=== PATIENT | female | born 1960 | race Caucasian/White ===

== ENCOUNTER 2016-05-18 03:59 | Emergency (ER) | payer BC ==
--- NOTE | 2016-05-18 06:56 | ED NURSING NOTES ---
Clinical Report - Nurses [facility] [address] [place] [address] 05/18/2016 4:00 Patient: JORDANA PINEDO TRIAGE Triage time 04:06. Acuity: LEVEL 3. Chief Complaint: FEVER, HEADACHE, NAUSEA and VOMITING. 04:14. Alert. SEPSIS SCREEN: Sepsis Screen. Negative (no infection suspected/documented). TAMMIE COMA SCORE: Tammie Coma Scale: 15- eyes open spontaneously (4); best verbal response- oriented x 4 (5); best motor response- obeys commands (6). --04:14 Jonathan Kincaid R.N. 04:06 05/18/16. BP: 171/82. HR: 65. RR: 18. O2 saturation: 98%. Temp: 100.4 F (oral). Pain level now: 01/16. --04:14 Jonathan Kincaid R.N. Weight: 81.6 kg stated. Height/Length: 64 inches Per Patient. BMI: 30.9. --04:14 Jonathan Kincaid R.N. Medications Sertraline HCl Oral 100 mg, daily. --04:10 Jonathan Kincaid R.N. Metoprolol Tartrate Oral 50 mg, 2 x daily. --04:11 Jonathan Kincaid R.N. Ibuprofen Oral 800 mg, 3x a day as needed. --04:11 Jonathan Kincaid R.N. Levothyroxine Sodium Oral 88 mcg, daily. --04:11 Jonathan Kincaid R.N. Atorvastatin Calcium Oral 80 mg, daily. --04:12 Jonathan Kincaid R.N. Medication/allergy information source: the patient. --04:14 Jonathan Kincaid R.N. Allergies No Known Drug Allergy. --04:10 Jonathan Kincaid R.N. History Arrived by private vehicle. Historian: patient. Accompanied by family. Primary physician (Marline Hughes). Onset. (2 days ago). 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 PAST MEDICAL HX: Immunizations: up-to-date. The patient is post-menopausal. SOCIAL HX: Never smoker. No alcohol use or drug use. No infectious disease exposure. ABUSE ASSESSMENT: No report of abuse. FALL RISK ASSESSMENT: Fall risk assessment completed. No fall risk identified. NUTRITIONAL RISK ASSESSMENT: The nutritional risk assessment revealed no deficiencies. FUNCTIONAL ASSESSMENT: Functional assessment: no impairments noted. LEARNING NEEDS ASSESSMENT: The learning needs assessment revealed no barriers. SKIN INTEGRITY ASSESSMENT: Skin integrity risk assessment completed. No skin integrity risk identified. --04:14 Jonathan Kincaid R.N. PROBLEMS: Arthritis. Hypothyroidism. Hypertension. Hypercholesterolemia. Depression. --04:13 Jonathan Kincaid R.N. ADDITIONAL SURGERIES: . Tubal Ligation. --04:13 Jonathan Kincaid R.N. Interventions ID band on patient. To treatment room. --04:14 Jonathan Kincaid R.N. PHYSICAL ASSESSMENT 04:14. Ambulatory to room. Patient gowned. GENERAL / NEURO / PSYCH: Alert. Oriented X 4. HEENT: No facial asymmetry noted. Mucous membranes are pink. RESPIRATORY: Respirations not labored. SKIN: Skin intact. Skin is warm and dry. Normal skin turgor. --04:14 Jonathan Kincaid R.N. NURSING PROGRESS NOTES 04:14. Two patient identifiers checked. Call light placed in reach. Bed placed in lowest position. Brakes of bed on. Patient ready for evaluation- chart flagged. --04:14 Jonathan Kincaid R.N. 04:27 05/18/2016 Site #1 started via IV in the right forearm with an 20g angiocath, with aseptic technique and good blood return; one attempt. Blood drawn: rainbow set. Labeled in the presence of the patient and sent to the lab. --04:33 Jonathan Kincaid R.N. 04:28 05/18/2016 Started bag #1 1000 mL IV Fluids IV NS (Saline); at 1000 mL/hr over 1 hour(s) via site #1 --04:34 Jonathan Kincaid R.N. 04:28. Patient ID band checked for patient name and birthdate: patient confirmed. Flu swab obtained by RN via nasal pharyngeal swab. Labeled in the presence of the patient and sent to lab. --04:34 Jonathan Kincaid R.N. 04:30 05/18/2016 Zofran (Ondansetron HCl) IVP 4 mg given over 2 minute(s) via site #1. Allergies verified and confirmed 5 rights. IV patency established. IV site checked: no pain, redness, or swelling. IV flushed thoroughly pre- and post-medication administration. --04:35 Jonathan Kincaid R.N. 05:18 Patient reports unable to provide urine sample now. The patient is calm and resting quietly. RESPIRATORY: No respiratory distress. SKIN: Skin is warm and dry. Skin color within normal limits. --05:19 Jonathan Kincaid R.N. 05:49 05/18/2016 IV Fluids IV NS Bag Change: bag #1 infused. Total amount infused: 1000. STARTED bag #2 at 500 mL/hr. --05:49 Jonathan Kincaid R.N. 05:48. Patient ID band checked for patient name and birthdate: patient confirmed. Clean catch urine collected with return of yellow-colored clear urine; sample sent to lab for urinalysis. Specimen labeled in the presence of the patient. --05:50 Jonathan Kincaid R.N. The patient is calm and resting quietly. RESPIRATORY: No respiratory distress. SKIN: Skin is warm and dry. Skin color within normal limits. --06:37 Jonathan Kincaid R.N. 06:36 05/18/16. BP: 165/69. HR: 70. RR: 16. O2 saturation: 92% on room air. --06:37 Jonathan Kincaid R.N. 07:06. The patient is calm and resting quietly. RESPIRATORY: No respiratory distress. SKIN: Skin is warm and dry. Skin color within normal limits. --07:09 Jonathan Kincaid R.N. DISPOSITION / DISCHARGE 07:02 05/18/2016 IV Fluids IV NS Discontinued: bag #2 STOPPED upon discharge. Total amount infused: 550 mL. IV patency established. IV site checked: no pain, redness, or swelling. IV flushed thoroughly. --07:08 Jonathan Kincaid R.N. 07:03 05/18/2016 Site #1 removed upon discharge. Catheter intact. Bandage applied. --07:08 Jonathan Kincaid R.N. Departure time: 07:05. Condition at departure: stable. No learning barriers present. Discharge instructions provided and reviewed with the patient. Reviewed medication(s) side effects, precautions, dosing and course information. Prescription(s) given to the patient. Patient verbalized understanding. Written instructions provided in Djiboutian. The patient was discharged home and accompanied by housekeeper head. She left the Emergency Department ambulatory and via private vehicle. Bandsaw Operator driving. FALL RISK ASSESSMENT: Fall risk assessment completed. No fall risk identified. --07:08 Jonathan Kincaid R.N. 06:56 05/18/16. BP: 161/70. HR: 67. RR: 16. O2 saturation: 96%. Pain level now: 08/16. --07:08 Jonathan Kincaid R.N. Locked/Released at 05/18/2016 7:14 by Jonathan Kincaid R.N.
--- NOTE | 2016-05-18 06:56 | ED ORDER SUMMARY ---
..... Patient: JORDANA PINEDO OrderSheet [facility] VisitID: [id number] [address] [place] [address] 56y, F Registration Date/Time: 05/18/2016 ORDER SHEET Weight: 81.6 kg (stated) Allergies: No Known Drug Allergy GENERAL ORDERS: Rapid Influenza Screen (Nasal Pharyngeal) (swab) Urgent (04:05/18/2016 JQuivey R.N. per protocol) (Ack 4:58 LMuller) (4:58 LMuller) CBC w Diff Urgent (04:43 05/18/2016 JQuivey R.N. per protocol) (Ack 4:58 LMuller) (4:58 LMuller) CMP Urgent (04:05/18/2016 JQuivey R.N. per protocol) (Ack 4:58 LMuller) (4:58 LMuller) Amylase Urgent (05:05/18/2016 Jatin ROD) (Ack 5:15 LMuller) (5:15 LMuller) Lipase Urgent (05:05/18/2016 Jatin ROD) (Ack 5:15 LMuller) (5:15 LMuller) UA-Culture if indicated Urgent (:05/18/2016 Jatin ROD) (Ack 5:15 LMuller) (5:49 JQuivey R.N.) MEDICATION ORDERS: IV FLUIDS: IV NS : initial bolus none -, then 1000 mL/hr (NOW) (04:05/18/2016 JQuivey R.N. per protocol) (4:34 JQuivey R.N.) Zofran IV 4 mg (NOW) (04:34 05/18/2016 JQuivey R.N. per protocol) (4:35 JQuivey R.N.) ORDER SHEET NOTES: [Electronically signed by Jonathan Kincaid R.N. (07:14 05/18/2016)] [Electronically signed by Smooth Maciel MD (18:49 05/21/2016)] [Electronically locked/signed by Jonathan Kincaid R.N. (07:05/18/2016)]
--- NOTE | 2016-05-18 06:56 | ED CLINICAL REPORT ---
Clinical Report - Physicians/Mid Levels [facility] [address] [place] [address] 05/18/2016 4:00 Patient: JORDANA PINEDO Time Seen: 04:07. Arrived- By private vehicle. Historian- patient. HISTORY OF PRESENT ILLNESS Chief Complaint: FEVER, CHILLS, NAUSEA and VOMITING. This started 2 days ago and is still present. It was abrupt in onset and has been constant and waxing/waning. The patient has had fatigue. REVIEW OF SYSTEMS The patient has had fever, chills, nausea and a headache and experienced sweats. No calf pain, chest pain, cough, difficulty breathing or pedal edema. No palpitations, abdominal pain, urinary problems or neck pain. The patient has had vomiting. The vomiting has occurred several times. No blood-tinged emesis or frankly bloody emesis. All systems otherwise negative, except as recorded above. PAST HISTORY Problems: Arthritis. Hypertension. Hypothyroidism. Hypercholesterolemia. Depression. Additional Surgeries: . Tubal Ligation. Medications: Atorvastatin Calcium Oral 80 mg, daily. Levothyroxine Sodium Oral 88 mcg, daily. Ibuprofen Oral 800 mg, 3x a day as needed. Metoprolol Tartrate Oral 50 mg, 2 x daily. Sertraline HCl Oral 100 mg, daily. Allergies: No Known Drug Allergy. SOCIAL HISTORY Never smoker. No alcohol use or drug use. ADDITIONAL NOTES The nursing notes have been reviewed. PHYSICAL EXAM Vital Signs: 05/18/2016 04:06 BP: 171/82. HR: 65. RR: 18. O2 saturation: 98%. Temp: 100.4 F. Pain level now: 01/16. Have been reviewed. Appearance: Alert. Eyes: Pupils equal, round and reactive to light. ENT: Ears normal. Nose normal. Pharynx normal. Neck: Normal inspection. Neck supple. No neck stiffness, nuchal rigidity or lymphadenopathy. Negative Brudzinski's sign and Kernig's sign. CVS: Normal heart rate and rhythm. Heart sounds normal. Respiratory: No respiratory distress. Breath sounds normal. Abdomen: No visible injury. Soft and nontender. Bowel sounds normal. No organomegaly. No mass. Back: Normal inspection. No CVA tenderness. Skin: Skin warm and dry. Normal skin color. Normal skin turgor. Extremities: Extremities exhibit normal ROM. No calf tenderness. No lower extremity edema. LABS, X-RAYS, AND EKG Laboratory Tests: UA-Culture if indicated: (COLBY: 05/18/2016 05:50) ( [facility] [place] 05/18/2016 05:58) Final results Test Result Flag Units (Reference) URINE COLOR YELLOW URINE APPEARANCE CLEAR URINE GLUCOSE NEGATIVE (NEGATIVE) URINE BILIRUBIN NEGATIVE (NEGATIVE) URINE KETONE NEGATIVE (NEGATIVE) URINE SPECIFIC GRAVITY 1.020 (1.010-1.030) URINE PH 6.0 (5.0-8.0) URINE PROTEIN NEGATIVE (NEGATIVE) URINE UROBILINOGEN 0.2 EU/dL (0.2-1.0) URINE NITRITE NEGATIVE (NEGATIVE) URINE BLOOD TRACE-INTACT (NEGATIVE) URINE LEUK ESTERASE NEGATIVE (NEGATIVE) URINE RBC 0-1 rbc/hpf (0-1) URINE WBC 0-1 wbc/hpf (0-1) URINE EPITHELIAL CELLS 0-1 EPI/hpf (0-5) URINE BACTERIA NONE SEEN (NONE SEEN) URINE COMMENT CULT NOT INDICATED URINE CULTURES ARE SET-UP BASED ON THE FOLLOWING CRITERIA:POSITIVE NITRITEPOSITIVE LEUKOCYTE ESTERASEGREATER THAN 10 WHITE BLOOD CELLSMODERATE (2+) OR GREATER BACTERIA CBC w Diff: (COLBY: 05/18/2016 04:28) ( [facility] [place] 05/18/2016 05:15) Final results Test Result Flag Units (Reference) WHITE BLOOD COUNT 6.0 K/uL (4.5-11.5) RED BLOOD COUNT 4.18 M/uL (4.00-5.20) HEMOGLOBIN 12.3 gm/dL (12.0-16.0) HEMATOCRIT 37.3 % (36.0-46.0) MEAN CELL VOLUME 89 fL (80-100) MEAN CORPUSCULAR HGB 29 pg (26-34) MEAN CORPUSCULAR HGB CONC 33 g/dL (31-37) RED CELL DISTRIBUTION WIDTH 13.6 % (11.6-14.8) PLATELET COUNT 144 L K/uL (150-400) NEUTROPHIL % 78.7 H % (50-75) LYMPH % 15.5 L % (25-40) MONO % 5.5 % (3-14) EOSINOPHIL % 0 % (0-4) BASOPHIL % 0.3 % (0-2) Lipase: (COLBY: 05/18/2016 04:28) ( MsgRcvd 05/18/2016 05:29) Final results Test Result Flag Units (Reference) LIPASE 135 U/L (73-393) AMYLASE 41 U/L (25-115) CMP: (COLBY: 05/18/2016 04:28) ( MsgRcvd 05/18/2016 05:30) Final results Test Result Flag Units (Reference) GLUCOSE 111 H mg/dL (70-110) BUN 14 mg/dL (7-18) CREATININE 1.1 mg/dL (0.6-1.3) Estimated GFR 54.61 mL/min Estimated GFR- >60 mL/min Note: Persistent reduction over 3 months in eGFR<60 mL/min/1.73 m2 defines CKD. Patients with eGFR values>=60 mL/min/1.73 m2 may also have CKD if evidence ofpersistent proteinuria. Additional information may be foundat www.kidney.org. SODIUM 145 mmol/L (136-145) POTASSIUM 3.4 L mmol/L (3.5-5.1) CHLORIDE 109 H mmol/L (98-107) CARBON DIOXIDE 24 mmol/L (21-32) CALCIUM 8.8 mg/dL (8.5-10.1) TOTAL PROTEIN 7.8 g/dL (6.4-8.2) ALBUMIN 4.3 g/dL (3.3-5.0) BILIRUBIN, TOTAL 0.8 mg/dL (0.0-1.0) ALKALINE PHOSPHATASE 98 U/L (46-116) AST (SGOT) 42 H U/L (15-37) ALT (SGPT) 61 U/L (12-78) Rapid Influenza Screen: (COLBY: 05/18/2016 04:28) ( [facility] [place] 05/18/2016 05:29) Final results SPECIMEN DESCRIPTION: SWAB Test Result Flag Units (Reference) RAPID INFLUENZA SCREEN CALLED TO: NA -- DATE: 05/18/16 INFLUENZA A: NEGATIVE SCREEN FOR INFLUENZA A INFLUENZA B: NEGATIVE SCREEN FOR INFLUENZA B . PROGRESS AND PROCEDURES Course of Care: Patient is stable. Patient/family counseled. Old medical records ordered. Old records unavailable. Disposition: Discharged. Condition: stable. CLINICAL IMPRESSION Fever Vomiting with nausea. Acute viral syndrome INSTRUCTIONS No driving or operating machinery while taking medication. Sedative medication was given during your visit. Warnings: Further evaluation is necessary. GENERAL WARNINGS: Return or contact your physician immediately if your condition worsens or changes unexpectedly, if not improving as expected, or if other problems arise. Your Current Medications: CONTINUE TAKING THE FOLLOWING MEDICATIONS: Atorvastatin Calcium Oral : 80 mg daily. Ibuprofen Oral : 800 mg 3x a day, prn. Levothyroxine Sodium Oral : 88 mcg daily. Metoprolol Tartrate Oral : 50 mg 2 x daily. Sertraline HCl Oral : 100 mg daily. Prescription Medications: Zofran (orally disintegrating tablets) 4 mg: take 1-2 orally every 6 hours as needed. Dispense ten (10). No refill. Substitution is permissible. OTC Medications: Acetaminophen (available over the counter): take according to label instructions. Understanding of the discharge instructions verbalized by patient. Follow-up with: Chris Downing MD, [facility], , [facility], [address] [place] [address] Follow up tomorrow. Call for an appointment. (Electronically signed by Smooth Maciel MD 05/21/2016 18:49)
--- NOTE | 2016-05-18 06:56 | ED NURSING NOTES ---
Clinical Report - Nurses [facility] [address] [place] [address] 05/18/2016 4:00 Patient: JORDANA PINEDO TRIAGE Triage time 04:06. Acuity: LEVEL 3. Chief Complaint: FEVER, HEADACHE, NAUSEA and VOMITING. 04:14. Alert. SEPSIS SCREEN: Sepsis Screen. Negative (no infection suspected/documented). TAMMIE COMA SCORE: Tammie Coma Scale: 15- eyes open spontaneously (4); best verbal response- oriented x 4 (5); best motor response- obeys commands (6). --04:14 Jonathan Kincaid R.N. 04:06 05/18/16. BP: 171/82. HR: 65. RR: 18. O2 saturation: 98%. Temp: 100.4 F (oral). Pain level now: 01/16. --04:14 Jonathan Kincaid R.N. Weight: 81.6 kg stated. Height/Length: 64 inches Per Patient. BMI: 30.9. --04:14 Jonathan Kincaid R.N. Medications Sertraline HCl Oral 100 mg, daily. --04:10 Jonathan Kincaid R.N. Metoprolol Tartrate Oral 50 mg, 2 x daily. --04:11 Jonathan Kincaid R.N. Ibuprofen Oral 800 mg, 3x a day as needed. --04:11 Jonathan Kincaid R.N. Levothyroxine Sodium Oral 88 mcg, daily. --04:11 Jonathan Kincaid R.N. Atorvastatin Calcium Oral 80 mg, daily. --04:12 Jonathan Kincaid R.N. Medication/allergy information source: the patient. --04:14 Jonathan Kincaid R.N. Allergies No Known Drug Allergy. --04:10 Jonathan Kincaid R.N. History Arrived by private vehicle. Historian: patient. Accompanied by family. Primary physician (Marline Hughes). Onset. (2 days ago). 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 PAST MEDICAL HX: Immunizations: up-to-date. The patient is post-menopausal. SOCIAL HX: Never smoker. No alcohol use or drug use. No infectious disease exposure. ABUSE ASSESSMENT: No report of abuse. FALL RISK ASSESSMENT: Fall risk assessment completed. No fall risk identified. NUTRITIONAL RISK ASSESSMENT: The nutritional risk assessment revealed no deficiencies. FUNCTIONAL ASSESSMENT: Functional assessment: no impairments noted. LEARNING NEEDS ASSESSMENT: The learning needs assessment revealed no barriers. SKIN INTEGRITY ASSESSMENT: Skin integrity risk assessment completed. No skin integrity risk identified. --04:14 Jonathan Kincaid R.N. PROBLEMS: Arthritis. Hypothyroidism. Hypertension. Hypercholesterolemia. Depression. --04:13 Jonathan Kincaid R.N. ADDITIONAL SURGERIES: . Tubal Ligation. --04:13 Jonathan Kincaid R.N. Interventions ID band on patient. To treatment room. --04:14 Jonathan Kincaid R.N. PHYSICAL ASSESSMENT 04:14. Ambulatory to room. Patient gowned. GENERAL / NEURO / PSYCH: Alert. Oriented X 4. HEENT: No facial asymmetry noted. Mucous membranes are pink. RESPIRATORY: Respirations not labored. SKIN: Skin intact. Skin is warm and dry. Normal skin turgor. --04:14 Jonathan Kincaid R.N. NURSING PROGRESS NOTES 04:14. Two patient identifiers checked. Call light placed in reach. Bed placed in lowest position. Brakes of bed on. Patient ready for evaluation- chart flagged. --04:14 Jonathan Kincaid R.N. 04:27 05/18/2016 Site #1 started via IV in the right forearm with an 20g angiocath, with aseptic technique and good blood return; one attempt. Blood drawn: rainbow set. Labeled in the presence of the patient and sent to the lab. --04:33 Jonathan Kincaid R.N. 04:28 05/18/2016 Started bag #1 1000 mL IV Fluids IV NS (Saline); at 1000 mL/hr over 1 hour(s) via site #1 --04:34 Jonathan Kincaid R.N. 04:28. Patient ID band checked for patient name and birthdate: patient confirmed. Flu swab obtained by RN via nasal pharyngeal swab. Labeled in the presence of the patient and sent to lab. --04:34 Jonathan Kincaid R.N. 04:30 05/18/2016 Zofran (Ondansetron HCl) IVP 4 mg given over 2 minute(s) via site #1. Allergies verified and confirmed 5 rights. IV patency established. IV site checked: no pain, redness, or swelling. IV flushed thoroughly pre- and post-medication administration. --04:35 Jonathan Kincaid R.N. 05:18 Patient reports unable to provide urine sample now. The patient is calm and resting quietly. RESPIRATORY: No respiratory distress. SKIN: Skin is warm and dry. Skin color within normal limits. --05:19 Jonathan Kincaid R.N. 05:49 05/18/2016 IV Fluids IV NS Bag Change: bag #1 infused. Total amount infused: 1000. STARTED bag #2 at 500 mL/hr. --05:49 Jonathan Kincaid R.N. 05:48. Patient ID band checked for patient name and birthdate: patient confirmed. Clean catch urine collected with return of yellow-colored clear urine; sample sent to lab for urinalysis. Specimen labeled in the presence of the patient. --05:50 Jonathan Kincaid R.N. The patient is calm and resting quietly. RESPIRATORY: No respiratory distress. SKIN: Skin is warm and dry. Skin color within normal limits. --06:37 Jonathan Kincaid R.N. 06:36 05/18/16. BP: 165/69. HR: 70. RR: 16. O2 saturation: 92% on room air. --06:37 Jonathan Kincaid R.N. 07:06. The patient is calm and resting quietly. RESPIRATORY: No respiratory distress. SKIN: Skin is warm and dry. Skin color within normal limits. --07:09 Jonathan Kincaid R.N. DISPOSITION / DISCHARGE 07:02 05/18/2016 IV Fluids IV NS Discontinued: bag #2 STOPPED upon discharge. Total amount infused: 550 mL. IV patency established. IV site checked: no pain, redness, or swelling. IV flushed thoroughly. --07:08 Jonathan Kincaid R.N. 07:03 05/18/2016 Site #1 removed upon discharge. Catheter intact. Bandage applied. --07:08 Jonathan Kincaid R.N. Departure time: 07:05. Condition at departure: stable. No learning barriers present. Discharge instructions provided and reviewed with the patient. Reviewed medication(s) side effects, precautions, dosing and course information. Prescription(s) given to the patient. Patient verbalized understanding. Written instructions provided in [place]ian. The patient was discharged home and accompanied by area loss prevention manager. She left the Emergency Department ambulatory and via private vehicle. Physiotherapy Practice Manager driving. FALL RISK ASSESSMENT: Fall risk assessment completed. No fall risk identified. --07:08 Jonathan Kincaid R.N. 06:56 05/18/16. BP: 161/70. HR: 67. RR: 16. O2 saturation: 96%. Pain level now: 08/16. --07:08 Jonathan Kincaid R.N. Locked/Released at 05/18/2016 7:14 by Jonathan Kincaid R.N.
--- NOTE | 2016-05-18 06:56 | ED CLINICAL REPORT ---
Clinical Report - Physicians/Mid Levels [facility] [address] [place] [address] 05/18/2016 4:00 Patient: JORDANA PINEDO Time Seen: 04:07. Arrived- By private vehicle. Historian- patient. HISTORY OF PRESENT ILLNESS Chief Complaint: FEVER, CHILLS, NAUSEA and VOMITING. This started 2 days ago and is still present. It was abrupt in onset and has been constant and waxing/waning. The patient has had fatigue. REVIEW OF SYSTEMS The patient has had fever, chills, nausea and a headache and experienced sweats. No calf pain, chest pain, cough, difficulty breathing or pedal edema. No palpitations, abdominal pain, urinary problems or neck pain. The patient has had vomiting. The vomiting has occurred several times. No blood-tinged emesis or frankly bloody emesis. All systems otherwise negative, except as recorded above. PAST HISTORY Problems: Arthritis. Hypertension. Hypothyroidism. Hypercholesterolemia. Depression. Additional Surgeries: . Tubal Ligation. Medications: Atorvastatin Calcium Oral 80 mg, daily. Levothyroxine Sodium Oral 88 mcg, daily. Ibuprofen Oral 800 mg, 3x a day as needed. Metoprolol Tartrate Oral 50 mg, 2 x daily. Sertraline HCl Oral 100 mg, daily. Allergies: No Known Drug Allergy. SOCIAL HISTORY Never smoker. No alcohol use or drug use. ADDITIONAL NOTES The nursing notes have been reviewed. PHYSICAL EXAM Vital Signs: 05/18/2016 04:06 BP: 171/82. HR: 65. RR: 18. O2 saturation: 98%. Temp: 100.4 F. Pain level now: 01/16. Have been reviewed. Appearance: Alert. Eyes: Pupils equal, round and reactive to light. ENT: Ears normal. Nose normal. Pharynx normal. Neck: Normal inspection. Neck supple. No neck stiffness, nuchal rigidity or lymphadenopathy. Negative Brudzinski's sign and Kernig's sign. CVS: Normal heart rate and rhythm. Heart sounds normal. Respiratory: No respiratory distress. Breath sounds normal. Abdomen: No visible injury. Soft and nontender. Bowel sounds normal. No organomegaly. No mass. Back: Normal inspection. No CVA tenderness. Skin: Skin warm and dry. Normal skin color. Normal skin turgor. Extremities: Extremities exhibit normal ROM. No calf tenderness. No lower extremity edema. LABS, X-RAYS, AND EKG Laboratory Tests: UA-Culture if indicated: (COLBY: 05/18/2016 05:50) ( [facility] 05/18/2016 05:58) Final results Test Result Flag Units (Reference) URINE COLOR YELLOW URINE APPEARANCE CLEAR URINE GLUCOSE NEGATIVE (NEGATIVE) URINE BILIRUBIN NEGATIVE (NEGATIVE) URINE KETONE NEGATIVE (NEGATIVE) URINE SPECIFIC GRAVITY 1.020 (1.010-1.030) URINE PH 6.0 (5.0-8.0) URINE PROTEIN NEGATIVE (NEGATIVE) URINE UROBILINOGEN 0.2 EU/dL (0.2-1.0) URINE NITRITE NEGATIVE (NEGATIVE) URINE BLOOD TRACE-INTACT (NEGATIVE) URINE LEUK ESTERASE NEGATIVE (NEGATIVE) URINE RBC 0-1 rbc/hpf (0-1) URINE WBC 0-1 wbc/hpf (0-1) URINE EPITHELIAL CELLS 0-1 EPI/hpf (0-5) URINE BACTERIA NONE SEEN (NONE SEEN) URINE COMMENT CULT NOT INDICATED URINE CULTURES ARE SET-UP BASED ON THE FOLLOWING CRITERIA:POSITIVE NITRITEPOSITIVE LEUKOCYTE ESTERASEGREATER THAN 10 WHITE BLOOD CELLSMODERATE (2+) OR GREATER BACTERIA CBC w Diff: (COLBY: 05/18/2016 04:28) ( [facility] 05/18/2016 05:15) Final results Test Result Flag Units (Reference) WHITE BLOOD COUNT 6.0 K/uL (4.5-11.5) RED BLOOD COUNT 4.18 M/uL (4.00-5.20) HEMOGLOBIN 12.3 gm/dL (12.0-16.0) HEMATOCRIT 37.3 % (36.0-46.0) MEAN CELL VOLUME 89 fL (80-100) MEAN CORPUSCULAR HGB 29 pg (26-34) MEAN CORPUSCULAR HGB CONC 33 g/dL (31-37) RED CELL DISTRIBUTION WIDTH 13.6 % (11.6-14.8) PLATELET COUNT 144 L K/uL (150-400) NEUTROPHIL % 78.7 H % (50-75) LYMPH % 15.5 L % (25-40) MONO % 5.5 % (3-14) EOSINOPHIL % 0 % (0-4) BASOPHIL % 0.3 % (0-2) Lipase: (COLBY: 05/18/2016 04:28) ( MsgRcvd 05/18/2016 05:29) Final results Test Result Flag Units (Reference) LIPASE 135 U/L (73-393) AMYLASE 41 U/L (25-115) CMP: (COLBY: 05/18/2016 04:28) ( MsgRcvd 05/18/2016 05:30) Final results Test Result Flag Units (Reference) GLUCOSE 111 H mg/dL (70-110) BUN 14 mg/dL (7-18) CREATININE 1.1 mg/dL (0.6-1.3) Estimated GFR 54.61 mL/min Estimated GFR- >60 mL/min Note: Persistent reduction over 3 months in eGFR<60 mL/min/1.73 m2 defines CKD. Patients with eGFR values>=60 mL/min/1.73 m2 may also have CKD if evidence ofpersistent proteinuria. Additional information may be foundat www.kidney.org. SODIUM 145 mmol/L (136-145) POTASSIUM 3.4 L mmol/L (3.5-5.1) CHLORIDE 109 H mmol/L (98-107) CARBON DIOXIDE 24 mmol/L (21-32) CALCIUM 8.8 mg/dL (8.5-10.1) TOTAL PROTEIN 7.8 g/dL (6.4-8.2) ALBUMIN 4.3 g/dL (3.3-5.0) BILIRUBIN, TOTAL 0.8 mg/dL (0.0-1.0) ALKALINE PHOSPHATASE 98 U/L (46-116) AST (SGOT) 42 H U/L (15-37) ALT (SGPT) 61 U/L (12-78) Rapid Influenza Screen: (COLBY: 05/18/2016 04:28) ( [facility] [place] 05/18/2016 05:29) Final results SPECIMEN DESCRIPTION: SWAB Test Result Flag Units (Reference) RAPID INFLUENZA SCREEN CALLED TO: NA -- DATE: 05/18/16 INFLUENZA A: NEGATIVE SCREEN FOR INFLUENZA A INFLUENZA B: NEGATIVE SCREEN FOR INFLUENZA B . PROGRESS AND PROCEDURES Course of Care: Patient is stable. Patient/family counseled. Old medical records ordered. Old records unavailable. Disposition: Discharged. Condition: stable. CLINICAL IMPRESSION Fever Vomiting with nausea. Acute viral syndrome INSTRUCTIONS No driving or operating machinery while taking medication. Sedative medication was given during your visit. Warnings: Further evaluation is necessary. GENERAL WARNINGS: Return or contact your physician immediately if your condition worsens or changes unexpectedly, if not improving as expected, or if other problems arise. Your Current Medications: CONTINUE TAKING THE FOLLOWING MEDICATIONS: Atorvastatin Calcium Oral : 80 mg daily. Ibuprofen Oral : 800 mg 3x a day, prn. Levothyroxine Sodium Oral : 88 mcg daily. Metoprolol Tartrate Oral : 50 mg 2 x daily. Sertraline HCl Oral : 100 mg daily. Prescription Medications: Zofran (orally disintegrating tablets) 4 mg: take 1-2 orally every 6 hours as needed. Dispense ten (10). No refill. Substitution is permissible. OTC Medications: Acetaminophen (available over the counter): take according to label instructions. Understanding of the discharge instructions verbalized by patient. Follow-up with: Chris Downing MD, [facility], , [place], [address] [place] [address] Follow up tomorrow. Call for an appointment. (Electronically signed by Somoth Maciel MD 05/21/2016 18:49)
--- NOTE | 2016-05-18 06:56 | ED ORDER SUMMARY ---
..... Patient: JORDANA PINEDO OrderSheet [facility] VisitID: [id number] [address] [place] [address] 56y, F Registration Date/Time: 05/18/2016 ORDER SHEET Weight: 81.6 kg (stated) Allergies: No Known Drug Allergy GENERAL ORDERS: Rapid Influenza Screen (Nasal Pharyngeal) (swab) Urgent (04:05/18/2016 JQuivey R.N. per protocol) (Ack 4:58 LMuller) (4:58 LMuller) CBC w Diff Urgent (04:43 05/18/2016 JQuivey R.N. per protocol) (Ack 4:58 LMuller) (4:58 LMuller) CMP Urgent (04:05/18/2016 JQuivey R.N. per protocol) (Ack 4:58 LMuller) (4:58 LMuller) Amylase Urgent (05:05/18/2016 Jatin ROD) (Ack 5:15 LMuller) (5:15 LMuller) Lipase Urgent (05:05/18/2016 Jatin ROD) (Ack 5:15 LMuller) (5:15 LMuller) UA-Culture if indicated Urgent (:05/18/2016 Jatin ROD) (Ack 5:15 LMuller) (5:49 JQuivey R.N.) MEDICATION ORDERS: IV FLUIDS: IV NS : initial bolus none -, then 1000 mL/hr (NOW) (04:05/18/2016 JQuivey R.N. per protocol) (4:34 JQuivey R.N.) Zofran IV 4 mg (NOW) (04:34 05/18/2016 JQuivey R.N. per protocol) (4:35 JQuivey R.N.) ORDER SHEET NOTES: [Electronically signed by Jonathan Kincaid R.N. (07:14 05/18/2016)] [Electronically signed by Smooth Maciel MD (18:49 05/21/2016)] [Electronically locked/signed by Jonathan Kincaid R.N. (07:05/18/2016)]
--- NOTE | 2016-05-21 18:49 | ED MED RECONCILIATION SUMMARY ---
Patient: JORDANA PINEDO Medication Reconciliation Report [facility] VisitID: [id number] [address] [place] [address] 56y, F Registration Date/Time: 05/18/2016 Weight: 81.6 kg Height/Length: 64 in. BMI: 30.9 ALLERGIES: No Known Drug Allergy The patient's Home Medications are listed below: CONTINUE TAKING THE FOLLOWING MEDICATIONS: Atorvastatin Calcium Oral 80 mg, daily Ibuprofen Oral 800 mg, 3x a day Levothyroxine Sodium Oral 88 mcg, daily Metoprolol Tartrate Oral 50 mg, 2 x daily Sertraline HCl Oral 100 mg, daily The source(s) of the original Home Medication information: patient The following Medications were given to the patient in the Emergency Department: IV NS IV Fluids bolus 0, then 1000 mL/hr, administered: 05/18/2016 4:28:00 AM Zofran [IVP] IVP 4 mg, administered: 05/18/2016 4:30:00 AM The following Medications were prescribed to the patient: Acetaminophen (available over the counter): take according to label instructions. -- Smooth Maciel MD Zofran (orally disintegrating tablets) 4 mg: take 1-2 orally every 6 hours as needed. Dispense ten (10). No refill. Substitution is permissible. -- Smooth Maciel MD
--- NOTE | 2016-05-21 18:49 | ED MAR SUMMARY ---
..... Medication Administration Record [facility] [address] [place] [address] Patient: JORDANA PINEDO Visit ID: [id number] 56y, F Weight: 81.6 kg Height/Length: 64 in BMI: 30.9 ALLERGIES: No Known Drug Allergy Start 04:28 05/18/2016 Jonathan Kincaid RSuyapaNSuyapa, Stop 07:02 05/18/2016 Jonathan Kincaid R.N. Medication Administered: IV NS (SALINE), Dose: IV Fluids over 1 hour(s), Rate: 1000 mL/hr, Dispensed: 1000 mL bag, Site: #1 right forearm. Medication Ordered: IV NS : initial bolus none -, then 1000 mL/hr (NOW). Given 04:30 05/18/2016 Jonathan Kincaid RSuyapaN. Medication Administered: ZOFRAN [IVP] (ONDANSETRON HCL), Dose: 4 mg IVP over 2 minute(s), Site: #1 right forearm. Medication Ordered: Zofran IV 4 mg (NOW).
--- NOTE | 2016-05-21 18:49 | ED MAR SUMMARY ---
..... Medication Administration Record [facility] [address] [place] [address] Patient: JORDANA PINEDO Visit ID: [id number] 56y, F Weight: 81.6 kg Height/Length: 64 in BMI: 30.9 ALLERGIES: No Known Drug Allergy Start 04:28 05/18/2016 Jonathan Kincaid RSuyapaNSuyapa, Stop 07:02 05/18/2016 Jonathan Kincaid R.N. Medication Administered: IV NS (SALINE), Dose: IV Fluids over 1 hour(s), Rate: 1000 mL/hr, Dispensed: 1000 mL bag, Site: #1 right forearm. Medication Ordered: IV NS : initial bolus none -, then 1000 mL/hr (NOW). Given 04:30 05/18/2016 Jonathan Kincaid RSuyapaN. Medication Administered: ZOFRAN [IVP] (ONDANSETRON HCL), Dose: 4 mg IVP over 2 minute(s), Site: #1 right forearm. Medication Ordered: Zofran IV 4 mg (NOW).
--- NOTE | 2016-05-21 18:49 | ED DISCHARGE INSTRUCTIONS ---
Patient: JORDANA PINEDO General Instructions [facility] VisitID: [id number] [place] [address] 56y, F Registration Date/Time: 05/18/2016 Fever Vomiting with nausea. Acute viral syndrome INSTRUCTIONS No driving or operating machinery while taking medication. Sedative medication was given during your visit. Warnings: Further evaluation is necessary. GENERAL WARNINGS: Return or contact your physician immediately if your condition worsens or changes unexpectedly, if not improving as expected, or if other problems arise. Your Current Medications: CONTINUE TAKING THE FOLLOWING MEDICATIONS: Atorvastatin Calcium Oral : 80 mg daily. Ibuprofen Oral : 800 mg 3x a day, prn. Levothyroxine Sodium Oral : 88 mcg daily. Metoprolol Tartrate Oral : 50 mg 2 x daily. Sertraline HCl Oral : 100 mg daily. Prescription Medications: Zofran (orally disintegrating tablets) 4 mg: take 1-2 orally every 6 hours as needed. Dispense ten (10). No refill. Substitution is permissible. OTC Medications: Acetaminophen (available over the counter): take according to label instructions. Understanding of the discharge instructions verbalized by patient. Follow-up with: Chris Downing MD, [facility], , [facility], [address] [place] [address] Follow up tomorrow. Call for an appointment. ADDITIONAL INFORMATION Febrile Illness, Uncertain Cause (Adult) You have a fever, but the cause is not certain. A fever is a natural reaction of the body to an illness such as infections due to a virus or bacteria. In most cases, the temperature itself is not harmful. It actually helps the body fight infections. A fever does not need to be treated unless you feel very uncomfortable. Sometimes a fever can be an early sign of a more serious infection. Therefore, you should watch for the signs listed below. Home Care: If signs and symptoms are severe, rest at home for the first 2-3 days. When you resume activity, don't let yourself get too tired. Stay away from cigarette smoke (yours and other peoples). You may use acetaminophen (Tylenol) or ibuprofen (Motrin, Advil) to control fever or pain, unless another medicine was prescribed. NOTE: If you have chronic liver or kidney disease or ever had a stomach ulcer or GI bleeding, talk with your doctor before using these medicines. (Aspirin should never be used in anyone under 18 years of age who is ill with a fever. It may cause severe liver damage.) Your appetite may be poor, so a light diet is fine. Avoid dehydration by drinking 6-8 glasses of fluid per day (water, sport drinks such as Gatorade, sodas without caffeine, juices, tea, soup). Extra fluid will help loosen secretions in the nose and lungs. Xeph-akh-itshonz products will not shorten the duration of the illness but may be helpful for the following symptoms: cough (Robitussin DM); sore throat (Chloraseptic lozenges or spray); nasal and sinus congestion (Actifed or Sudafed). NOTE: Do not use decongestants if you have high blood pressure. Follow Up with your doctor or as advised if you do not start to improve over the next week. Get Prompt Medical Attention if any of the following occur: Cough with lots of colored sputum (mucus) or blood in your sputum Chest pain, shortness of breath, wheezing or difficulty breathing Severe headache, face, neck, throat or ear pain Feeling drowsy or confused Abdominal pain, repeated vomiting or diarrhea Joint pain or a new rash Burning when urinating Fever of 100.4F (38C) oral or higher, not better with fever medication Feeling weak or dizzy Convulsion Viral Syndrome (Adult) A viral illness may cause a number of symptoms. The symptoms depend on the part of the body that the virus affects. If it settles in the nose, throat, and lungs, it may cause cough, sore throat, congestion, and sometimes headache. If it settles in the stomach and intestinal tract, it may cause vomiting and diarrhea. Sometimes it causes vague symptoms like "aching all over," feeling tired, loss of appetite, or fever. A viral illness usually lasts1 to 2 weeks, but sometimes it lasts longer. In some cases, a more serious infection can look like a viral syndrome in the first few days of the illness. You may need anotherexam and additional teststo know the difference.Watch for the warning signs listed below. Home care Follow these guidelines for taking care of yourself at home: If symptoms are severe, rest at home for the first 2 to 3 days. Stay away from cigarette smoke - both your smoke and the smoke from others. You may useacetaminophen or ibuprofen for fever, muscle aching, and headache, unless another medicine was prescribed for this.If you have chronic liver or kidney disease or ever had a stomach ulcer or GI bleeding, talk with your doctor before using these medicinesNo one who is younger than 18 and ill with a fever should take aspirin. It may cause severe liver damage. Your appetite may be poor, so a light diet is fine. Avoid dehydration by drinking 8 to 12 8-ounce glasses of fluids each day. This may include water; orange juice; lemonade; apple, grape, and cranberry juice; clear fruit drinks; electrolyte replacement and sports drinks; and decaffeinated teas and coffee. If you have been diagnosed with a kidney disease, ask your doctor how much and what types of fluids you should drink to prevent dehydration. If you have kidney disease, drinking too much fluid can cause it build up in the your body and be dangerous to your health. Hpgz-shz-[id number] remedies won't shorten the length of the illness but may be helpful forcough, sore throat; and nasal and sinus congestion. Don't use decongestants if you have high blood pressure. Follow-up care Follow up with your health care provider if you do not improve over the next week. When to seek medical care Get prompt medical attention if any of these occur: Cough with lots of colored sputum (mucus) or blood in your sputum Chest pain, shortness of breath, wheezing, or difficulty breathing Severe headache; face, neck, or ear pain Severe, constant pain in the lower right side of your belly (abdominal) Continued vomiting (cant keep liquids down) Frequent diarrhea (more than 5 times a day); blood (red or black color) or mucus in diarrhea Feeling weak, dizzy, or like you are going to faint Extreme thirst Fever of 100.4 F (38 C) oral or higher, not better with fever medication Convulsion Vomiting [6Yr-Adult] Vomiting is a common symptom that may be due to different causes. These include gastroenteritis ("stomach flu"), food poisoning and gastritis. There are other more serious causes of vomiting which may be hard to diagnose early in the illness. Therefore, it is important to watch for the warning signs listed below. The main danger from repeated vomiting is dehydration. This is due to excess loss of water and minerals from the body. When this occurs, body fluids must be replaced. Home Care: If symptoms are severe, rest at home for the next 24 hours. You may use acetaminophen (Tylenol) or ibuprofen (Motrin, Advil) to control fever, unless another medicine was prescribed. [NOTE : If you have chronic liver or kidney disease or ever had a stomach ulcer or GI bleeding, talk with your doctor before using these medicines.] (Aspirin should never be used in anyone under 18 years of age who is ill with a fever. It may cause severe liver damage.) Avoid tobacco and alcohol use, which may worsen your symptoms. If medicines for vomiting were prescribed, take as directed. Once vomiting stops, then follow these guidelines: During The First 12-24 Hours follow the diet below: FRUIT JUICES: Apple, grape juice, clear fruit drinks, and electrolyte replacement drinks. BEVERAGES: Soft drinks without caffeine; mineral water (plain or flavored), decaffeinated tea and coffee. SOUPS: Clear broth, consomm and bouillon DESSERTS: Plain gelatin, popsicles and fruit juice bars. As you feel better, you may add 6-8 ounces of yogurt per day. During The Next 24 Hours you may add the following to the above: Hot cereal, plain toast, bread, rolls, crackers Plain noodles, rice, mashed potatoes, chicken noodle or rice soup Unsweetened canned fruit (avoid pineapple), bananas Limit caffeine and chocolate. No spices or seasonings except salt. During The Next 24 Hours Gradually resume a normal diet, as you feel better and your symptoms lessen. Follow Up with your doctor as advised if you are not improving over the next 2-3 days. Get Prompt Medical Attention if any of the following occur: Constant right-sided lower abdominal pain or increasing general abdominal pain Continued vomiting (unable to keep liquids down) for 24 hours Frequent diarrhea (more than 5 times a day); blood (red or black color) or mucus in diarrhea Reduced urine output or extreme thirst Weakness, dizziness or fainting Unusually drowsy or confused Fever of 100.4F (38C) oral or higher, not better with fever medication Yellow color of the eyes or skin Ondansetron Oral disintegrating tablet What is this medicine? ONDANSETRON (on GINA se miguel) is used to treat nausea and vomiting caused by chemotherapy. It is also used to prevent or treat nausea and vomiting after surgery. How should I use this medicine? These tablets are made to dissolve in the mouth. Do not try to push the tablet through the foil backing. With dry hands, peel away the foil backing and gently remove the tablet. Place the tablet in the mouth and allow it to dissolve, then swallow. While you may take these tablets with water, it is not necessary to do so. Talk to your orange picker regarding the use of this medicine in children. Special care may be needed. What side effects may I notice from receiving this medicine? Side effects that you should report to your doctor or health critical care nurse practitioner as soon as possible: allergic reactions like skin rash, itching or hives, swelling of the face, lips, or tongue breathing problems dizziness fast or irregular heartbeat feeling faint or lightheaded, falls fever and chills swelling of the hands and feet tightness in the chest Side effects that usually do not require medical attention (report to your doctor or health critical care nurse practitioner if they continue or are bothersome): constipation or diarrhea headache What may interact with this medicine? Do not take this medicine with any of the following medications: -apomorphine -cisapride -dofetilide -dronedarone -pimozide -thioridazine -ziprasidone This medicine may also interact with the following medications: -carbamazepine -phenytoin -rifampicin -tramadol -other medicines that prolong the QT interval (cause an abnormal heart rhythm) What if I miss a dose? If you miss a dose, take it as soon as you can. If it is almost time for your next dose, take only that dose. Do not take double or extra doses. Where should I keep my medicine? Keep out of the reach of children. Store between 2 and 30 degrees C (36 and 86 degrees F). Throw away any unused medicine after the expiration date. What should I tell my health care provider before I take this medicine? They need to know if you have any of these conditions: heart disease history of irregular heartbeat liver disease low levels of magnesium or potassium in the blood an unusual or allergic reaction to ondansetron, granisetron, other medicines, foods, dyes, or preservatives or trying to get breast-feeding What should I watch for while using this medicine? Check with your doctor or health critical care nurse practitioner as soon as you can if you have any sign of an allergic reaction. Acetaminophen Oral tablet What is this medicine? ACETAMINOPHEN (a set a MICHAEL aspen fen) is a pain reliever. It is used to treat mild pain and fever. How should I use this medicine? Take this medicine by mouth with a glass of water. Follow the directions on the package or prescription label. Take your medicine at regular intervals. Do not take your medicine more often than directed. Talk to your orange picker regarding the use of this medicine in children. While this drug may be prescribed for children as young as 6 years of age for selected conditions, precautions do apply. What side effects may I notice from receiving this medicine? Side effects that you should report to your doctor or health critical care nurse practitioner as soon as possible: allergic reactions like skin rash, itching or hives, swelling of the face, lips, or tongue breathing problems fever or sore throat redness, blistering, peeling or loosening of the skin, including inside the mouth trouble passing urine or change in the amount of urine unusual bleeding or bruising unusually weak or tired yellowing of the eyes or skin Side effects that usually do not require medical attention (report to your doctor or health critical care nurse practitioner if they continue or are bothersome): headache nausea, stomach upset What may interact with this medicine? alcohol imatinib isoniazid other medicines with acetaminophen What if I miss a dose? If you miss a dose, take it as soon as you can. If it is almost time for your next dose, take only that dose. Do not take double or extra doses. Where should I keep my medicine? Keep out of reach of children. Store at room temperature between 20 and 25 degrees C (68 and 77 degrees F). Protect from moisture and heat. Throw away any unused medicine after the expiration date. What should I tell my health care provider before I take this medicine? They need to know if you have any of these conditions: if you frequently drink alcohol containing drinks liver disease an unusual or allergic reaction to acetaminophen, other medicines, foods, dyes or preservatives or trying to get breast-feeding What should I watch for while using this medicine? Tell your doctor or health critical care nurse practitioner if the pain lasts more than 10 days (5 days for children), if it gets worse, or if there is a new or different kind of pain. Also, check with your doctor if a fever lasts for more than 3 days. Do not take other medicines that contain acetaminophen with this medicine. Always read labels carefully. If you have questions, ask your doctor or pharmacist. If you take too much acetaminophen get medical help right away. Too much acetaminophen can be very dangerous and cause liver damage. Even if you do not have symptoms, it is important to get help right away. You have been given the following additional information: Febrile Illness, Uncertain Cause (Adult) Viral Syndrome (Adult) Vomiting (6Y-Adult) Ondansetron Oral disintegrating tablet Acetaminophen Oral tablet No driving or operating machinery while taking medication. Sedative medication was given during your visit. (Electronically signed by Smooth Maciel MD 05/21/2016 18:49)
--- NOTE | 2016-05-21 18:49 | ED MED RECONCILIATION SUMMARY ---
Patient: JORDANA PINEDO Medication Reconciliation Report [facility] VisitID: [id number] [address] [place] [address] 56y, F Registration Date/Time: 05/18/2016 Weight: 81.6 kg Height/Length: 64 in. BMI: 30.9 ALLERGIES: No Known Drug Allergy The patient's Home Medications are listed below: CONTINUE TAKING THE FOLLOWING MEDICATIONS: Atorvastatin Calcium Oral 80 mg, daily Ibuprofen Oral 800 mg, 3x a day Levothyroxine Sodium Oral 88 mcg, daily Metoprolol Tartrate Oral 50 mg, 2 x daily Sertraline HCl Oral 100 mg, daily The source(s) of the original Home Medication information: patient The following Medications were given to the patient in the Emergency Department: IV NS IV Fluids bolus 0, then 1000 mL/hr, administered: 05/18/2016 4:28:00 AM Zofran [IVP] IVP 4 mg, administered: 05/18/2016 4:30:00 AM The following Medications were prescribed to the patient: Acetaminophen (available over the counter): take according to label instructions. -- Smooth Maciel MD Zofran (orally disintegrating tablets) 4 mg: take 1-2 orally every 6 hours as needed. Dispense ten (10). No refill. Substitution is permissible. -- Smooth Maciel MD
== END 2016-05-18 07:08 | disposition home or self-care (01) ==
LOC: ED SRH 03:59
DX: B34.9 Viral infection, unspecified (principal); I10 Essential (primary) hypertension; E78.00 Pure hypercholesterolemia, unspecified; E03.9 Hypothyroidism, unspecified; Z79.899 Other long term (current) drug therapy
CPT/HCPCS: 90004; 90100; 91400; 92235; 92530; 95059

== ENCOUNTER 2016-07-22 15:07 | Outpatient (CLI) | payer BC ==
--- NOTE | 2016-07-22 15:52 | DIAGNOSTIC IMAGING REPORT ---
PROCEDURE: XR CERVICAL SPINE 4 OR 5 VIEW INDICATION: NECK PAIN TECHNIQUE: Five views. COMPARISON: None. FINDINGS: There is spondylosis at C4-5 and C5-6. At C4-5 there is bilateral hypertrophy of the uncinate processes with impingement on the neural foramina. At C5-6 there is no uncinate process hypertrophy, but there is a small posterior osteophytic ridge. IMPRESSION: 1. 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
== END 2016-07-22 23:00 ==
LOC: XR SRH 15:07
DX: M47.812 Spondylosis without myelopathy or radiculopathy, cervical region (principal)